=== PATIENT | female | born 1965 | race American Indian/Alaskan Native ===

== ENCOUNTER 2019-05-24 11:27 | Emergency (ER) | payer MEDICARE ==
--- NOTE | 2019-05-24 11:52 | Emergency Department Report ---
Blank Doc - Documentation Documentation: 53 Y/O FEMALE UNDER THE CARE OF GASTEROENTEROLGY FOR "STOMACH INFECTION" PRESE NTS TO ED C/O OF 5 DAYS OF ABDOMINAL PAIN AND DARK TARRY STOOLS WHAT HAVE BEEN WORSENING. HER GI DOCTOR ADVISED HER TO COME TO THE ER.
[2019-05-24 11:53] VITALS: BP 143/90
[2019-05-24 12:43] LABS: Basophils % (Auto) 0.8 % (0.0-1.8); Eosinophils # (Auto) 0.1 K/mm3 (0.0-0.4); Eosinophils % (Auto) 2.1 % (0.0-4.3); Hematocrit 44.1 % (30.3-42.9); Hemoglobin 14.9 gm/dl (10.1-14.3); Lymphocytes # (Auto) 2.4 K/mm3 (1.2-5.4); Lymphocytes % (Auto) 42.5 % (13.4-35.0); Mean Corpuscular HGB Conc 34 % (30-34); Mean Corpuscular Volume 95 fl (79-97); Monocytes # (Auto) 0.4 K/mm3 (0.0-0.8); Monocytes % (Auto) 7.5 % (0.0-7.3); Platelet Count 228 K/mm3 (140-440); Red Blood Count 4.66 M/mm3 (3.65-5.03); Red Cell Distribution Width 14.5 % (13.2-15.2)
[2019-05-24 13:02] LABS: INR 0.93 (0.87-1.13)
[2019-05-24 13:08] LABS: Alanine Aminotransferase 14 units/L (7-56); Albumin 4.4 g/dL (3.9-5)
[2019-05-24 13:11] LABS: Bilirubin,Direct < 0.2 mg/dL (0-0.2)
--- NOTE | 2019-05-24 14:40 | Emergency Department Report ---
ED Abdominal Pain HPI - General Chief Complaint: Abdominal Pain Stated Complaint: BLOOD IN STOOL Time Seen by Provider: 05/24/19 11:50 Source: patient Mode of arrival: Ambulatory Limitations: No Limitations - History of Present Illness Initial Comments: 53 yo female comes to ER with co abd bloating and dark stool. She has hx of GERD, slow stomach and infection in her stomach. She had colonoscopy 1 y ago. no n/v/d no cp or sob Reports bloating- she reports a lot of food allergies Denies weight loss. Denies hemorrhoids. Denies taking MVI no tachycardia/hypotension non ill appearing on exam MD Complaint: abdominal pain -: Gradual, month(s) Location: diffuse Migration to: no migration Quality: cramping Improves With: nothing Worsens With: nothing Associated Symptoms: denies other symptoms - Related Data Previous Rx's Medication Instructions Recorded Last Taken Type Fluconazole [Diflucan TAB] 100 mg PO BID #2 tablet 02/05/19 Unknown Rx Ketorolac [Toradol] 10 mg PO Q6H PRN #20 tablet 02/05/19 Unknown Rx metroNIDAZOLE [Flagyl] 500 mg PO Q12HR #6 tab 02/05/19 Unknown Rx Allergies Allergy/AdvReac Type Severity Reaction Status Date / Time No Known Allergies Allergy Verified 05/24/19 11:38 ED Review of Systems ROS: Stated complaint: BLOOD IN STOOL Other details as noted in HPI Comment: All other systems reviewed and negative ED Past Medical Hx - Past Medical History Previous Medical History?: Yes Hx Hypertension: Yes Additional medical history: abd infection - Surgical History Past Surgical History?: Yes Additional Surgical History: neck, back, hysertectomy, tubes, rectum, shoulder, - Family History Family history: no significant - Social History Smoking Status: Current Every Day Smoker Substance Use Type: Alcohol - Medications Home Medications: Home Medications Medication Instructions Recorded Confirmed Last Taken Type Fluconazole [Diflucan TAB] 100 mg PO BID #2 tablet 02/05/19 Unknown Rx Ketorolac [Toradol] 10 mg PO Q6H PRN #20 tablet 02/05/19 Unknown Rx metroNIDAZOLE [Flagyl] 500 mg PO Q12HR #6 tab 02/05/19 Unknown Rx ED Physical Exam - General Limitations: No Limitations General appearance: alert, in no apparent distress - Head Head exam: Present: atraumatic, normocephalic - Eye Eye exam: Present: normal appearance - ENT ENT exam: Present: mucous membranes moist - Neck Neck exam: Present: normal inspection - Respiratory Respiratory exam: Present: normal lung sounds bilaterally. Absent: respiratory distress - Cardiovascular Cardiovascular Exam: Present: regular rate, normal rhythm. Absent: systolic murmur, diastolic murmur, rubs, gallop - GI/Abdominal GI/Abdominal exam: Present: soft, normal bowel sounds - Extremities Exam Extremities exam: Present: normal inspection - Back Exam Back exam: Present: normal inspection - Neurological Exam Neurological exam: Present: alert, oriented X3 - Psychiatric Psychiatric exam: Present: normal affect, normal mood - Skin Skin exam: Present: warm, dry, intact, normal color. Absent: rash ED Course Vital Signs 05/24/19 11:50 Temperature 98.4 F Pulse Rate 87 Respiratory 18 Rate Blood Pressure 143/90 O2 Sat by Pulse 98 Oximetry ED Medical Decision Making - Lab Data Result diagrams: 05/24/19 12:22 - Medical Decision Making Lab Results 05/24/19 05/24/19 05/24/19 Range/Units 12:22 12:22 12:22 WBC 5.7 (4.5-11.0) K/mm3 RBC 4.66 (3.65-5.03) M/mm3 Hgb 14.9 H (10.1-14.3) gm/dl Hct 44.1 H (30.3-42.9) % MCV 95 (79-97) fl MCH 32 (28-32) pg MCHC 34 (30-34) % RDW 14.5 (13.2-15.2) % Plt Count 228 (140-440) K/mm3 Lymph % (Auto) 42.5 H (13.4-35.0) % [place] % (Auto) 7.5 H (0.0-7.3) % Eos % (Auto) 2.1 (0.0-4.3) % Baso % (Auto) 0.8 (0.0-1.8) % Lymph # 2.4 (1.2-5.4) K/mm3 [place] # 0.4 (0.0-0.8) K/mm3 Eos # 0.1 (0.0-0.4) K/mm3 Baso # 0.0 (0.0-0.1) K/mm3 Seg Neutrophils % 47.1 (40.0-70.0) % Seg Neutrophils # 2.7 (1.8-7.7) K/mm3 PT 12.6 (12.2-14.9) Sec. INR 0.93 (0.87-1.13) Total Bilirubin 0.40 (0.1-1.2) mg/dL Direct Bilirubin < 0.2 (0-0.2) mg/dL AST 16 (5-40) units/L ALT 14 (7-56) units/L Alkaline Phosphatase 88 (35-129) units/L Total Protein 7.3 (6.3-8.2) g/dL Albumin 4.4 (3.9-5) g/dL Albumin/Globulin Ratio 1.5 % Lipase 40 (13-60) units/L Vital Signs 05/24/19 11:50 Temperature 98.4 F Pulse Rate 87 Respiratory 18 Rate Blood Pressure 143/90 O2 Sat by Pulse 98 Oximetry hgb stable a/c GI problems Has GI MD and has scheduled appnt. VSS ambulatory taking po dc home with GI followup - Differential Diagnosis ro gib Critical care attestation.: If time is entered above; I have spent that time in minutes in the direct care of this critically ill patient, excluding procedure time. ED Disposition Clinical Impression: Abdominal bloating Disposition: DC-01 TO HOME OR SELFCARE Is pt being admited?: No Does the pt Need Aspirin: No Condition: Stable Instructions: Abdominal Pain (ED) Additional Instructions: follow up with GI as we discussed labs are all normal today continue your home protonix bland diet and advance as tolerated Referrals: SHAAN MASON MD [Staff Physician] - 3-5 Days Time of Disposition: 14:39
== END 2019-05-24 14:50 | disposition home or self-care (01) ==
LOC: ED 11:27
DX: R14.0 Abdominal distension (gaseous) (principal); R10.9 Unspecified abdominal pain; I10 Essential (primary) hypertension; F17.200 Nicotine dependence, unspecified, uncomplicated
CPT/HCPCS: 36415; 80076; 83690; 85025; 85610; 99283

== ENCOUNTER 2020-03-14 16:04 | Emergency (ER) | payer MEDICARE ==
[2020-03-14 16:10] VITALS: BP 163/91
--- NOTE | 2020-03-14 17:55 | Event Note ---
ED Screening Note Date of service: 03/14/20 Time: 17:54 ED Screening Note: 54 y o female presents with limp and right knee pain s/p fall This initial assessment/diagnostic orders/clinical plan/treatment(s) is/are subject to change based on patients health status, clinical progression and re- assessment by fellow clinical providers in the ED. Further treatment and workup at subsequent clinical providers discretion. Patient/guardian urged not to elope from the ED as their condition may be serious if not clinically assessed and managed. Initial orders include: xr knee acc
--- NOTE | 2020-03-14 18:25 | XRay Report ---
BILATERAL KNEES, 2 VIEWS EACH INDICATION / CLINICAL INFORMATION: pain and swelling r/t injury. COMPARISON: None available. FINDINGS: BONES/JOINT(S): No acute fracture or subluxation. No significant degenerative changes. No significant joint effusion. SOFT TISSUES: No significant abnormality. ADDITIONAL FINDINGS: None. Signer Name: Jeff Harrell MD Signed: 03/14/2020 6:20 PM Workstation Name: [id number]
[2020-03-14] MEDS ORDERED: HYDROcodone/ACETAMINOPHEN 5-325 MG TAB PO STA (21:36)
--- NOTE | 2020-03-14 21:39 | Emergency Department Report ---
ED Lower Extremity HPI - General Chief Complaint: Extremity Injury, Lower Stated Complaint: RT KNEE INJURY Time Seen by Provider: 03/14/20 21:09 Source: patient Mode of arrival: Ambulatory Limitations: No Limitations - History of Present Illness Initial Comments: 54-year-old [place] female presents emerge department status post slip and fall by her sisters have seen misstep falling back towards her right side having her right knee to twist inward and flex type of a position followed by a burning pain to the medial anterior portion of her knee which is continue to to worsen since a fall last night. No numbness or tingling. No head she does have a previous history of arthritis. P no hip pain MD Complaint: knee injury -: Sudden Injury: Knee: Right Type of Injury: inversion Place: home Worsens With: weight bearing, movement, palpation Context: fall Associated Symptoms: swelling - Related Data Previous Rx's Medication Instructions Recorded Last Taken Type Fluconazole [Diflucan TAB] 100 mg PO BID #2 tablet 02/05/19 Unknown Rx Ketorolac [Toradol] 10 mg PO Q6H PRN #20 tablet 02/05/19 Unknown Rx metroNIDAZOLE [Flagyl] 500 mg PO Q12HR #6 tab 02/05/19 Unknown Rx Ketorolac [Toradol] 10 mg PO Q6H PRN #10 tablet 03/14/20 Unknown Rx traMADoL [Ultram] 50 mg PO Q4HR PRN #10 tablet 03/14/20 Unknown Rx Allergies Allergy/AdvReac Type Severity Reaction Status Date / Time No Known Allergies Allergy Verified 03/14/20 16:08 ED Review of Systems ROS: Stated complaint: RT KNEE INJURY Other details as noted in HPI Comment: All other systems reviewed and negative ED Past Medical Hx - Past Medical History Hx Hypertension: Yes Additional medical history: abd infection - Surgical History Additional Surgical History: neck, back, hysertectomy, tubes, rectum, shoulder, - Social History Smoking Status: Never Smoker Substance Use Type: None - Medications Home Medications: Home Medications Medication Instructions Recorded Confirmed Last Taken Type Fluconazole [Diflucan TAB] 100 mg PO BID #2 tablet 02/05/19 Unknown Rx Ketorolac [Toradol] 10 mg PO Q6H PRN #20 tablet 02/05/19 Unknown Rx metroNIDAZOLE [Flagyl] 500 mg PO Q12HR #6 tab 02/05/19 Unknown Rx Ketorolac [Toradol] 10 mg PO Q6H PRN #10 tablet 03/14/20 Unknown Rx traMADoL [Ultram] 50 mg PO Q4HR PRN #10 tablet 03/14/20 Unknown Rx ED Physical Exam - General Limitations: No Limitations General appearance: alert, in no apparent distress - Head Head exam: Present: atraumatic, normocephalic - Eye Eye exam: Present: normal appearance - ENT ENT exam: Present: mucous membranes moist - Neck Neck exam: Present: normal inspection - Respiratory Respiratory exam: Present: normal lung sounds bilaterally. Absent: respiratory distress - Cardiovascular Cardiovascular Exam: Present: regular rate, normal rhythm. Absent: systolic murmur, diastolic murmur, rubs, gallop - GI/Abdominal GI/Abdominal exam: Present: soft, normal bowel sounds - Extremities Exam Extremities exam: Present: normal inspection - Expanded Lower Extremity Exam Right Knee exam: Present: tenderness, pain w/ pronation/supination, pain/laxity with valgus. Absent: abrasion, laceration, ecchymosis, deformity, posterior draw sign, pain/laxity with varus Lower Leg exam: Present: normal inspection Ankle exam: Present: normal inspection Foot/Toe exam: Present: normal inspection Neuro vascular tendon exam: Present: no vascular compromise. Absent: pulse deficit Gait: Positive: antalgic (Minimal weight support) - Back Exam Back exam: Present: normal inspection - Neurological Exam Neurological exam: Present: alert, oriented X3 - Psychiatric Psychiatric exam: Present: normal affect, normal mood - Skin Skin exam: Present: warm, dry, intact, normal color. Absent: rash ED Course Vital Signs 03/14/20 16:09 Temperature 98.0 F Pulse Rate 109 H Respiratory 18 Rate Blood Pressure 163/91 O2 Sat by Pulse 95 Oximetry ED Lower Extremity MDM - Radiology Data Radiology results: report reviewed X-ray report of the right knee shows no acute findings read by Dr. Mohamud Anthony - Medical Decision Making 54-year-old female status post trip and fall and back onto her right knee resulting in a twisting type of a pain swelling and discomfort to her knee unable to support helpful for full weight plan at this point is to place in a knee immobilizer as well as crutches for her support and follow-up with orthopedic for definitive treatment options. The patient did express an understanding. Critical care attestation.: If time is entered above; I have spent that time in minutes in the direct care of this critically ill patient, excluding procedure time. ED Disposition Clinical Impression: Knee internal derangement Disposition: DC-01 TO HOME OR SELFCARE Is pt being admited?: No Does the pt Need Aspirin: No Condition: Stable Instructions: Knee Pain (ED), Knee Immobilizer (ED), Magnetic Resonance Imaging (ED), Anterior Cruciate Ligament Injury (ED), Knee Sprain (ED), Posterior Cruciate Ligament Injury (ED) Prescriptions: Ketorolac [Toradol] 10 mg PO Q6H PRN #10 tablet PRN Reason: Pain traMADoL [Ultram] 50 mg PO Q4HR PRN #10 tablet PRN Reason: Pain Referrals: PRIMARY CAREMD [Primary Care Provider] - 3-5 Days STANTON HOOVER MD [Staff Physician] - 3-5 Days [facility] [Provider Group] - 3-5 Days
== END 2020-03-14 22:20 | disposition home or self-care (01) ==
LOC: ED 16:04
DX: M23.91 Unspecified internal derangement of right knee (principal); I10 Essential (primary) hypertension; Z90.710 Acquired absence of both cervix and uterus; Z98.890 Other specified postprocedural states; Z79.899 Other long term (current) drug therapy